=== PATIENT | male | born 1965 ===

== ENCOUNTER 2017-12-08 18:08 | Inpatient (IN) | payer BC, SELFPAY ==
[2017-12-08] MEDS ORDERED: Calcium Carbonate 500 MG ChewTAB PO PRN (19:46)
[2017-12-08] MEDS ORDERED: Milk Of Magnesia 30 ML UDCUP PO PRN (19:46)
[2017-12-08] MEDS ORDERED: Senokot 8.6 MG TAB PO PRN (19:46)
[2017-12-08] MEDS ORDERED: Mag-Al 1200 mg/1200 mg/30 ML UDCUP PO PRN (19:46)
[2017-12-08] MEDS ORDERED: Acetaminophen 325 MG TAB PO PRN (19:46)
[2017-12-08] MEDS ORDERED: Fleet Enema 133 ML BOT PR PRN (19:46)
[2017-12-08] MEDS ORDERED: Ondansetron HCl/PF 4 MG/2 ML Vial IVP PRN (19:46)
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
[2017-12-08] MEDS: Docusate 100 MG CAP PO SCH (23:23)
[2017-12-08] MEDS: HYDROcodone/Acetaminophen 5/325 mg Tablet PO PRN (23:23)
[2017-12-08] MEDS: Sodium Chloride 0.9% 1,000 ML IV SCH (23:25)
[2017-12-09] MEDS: HYDROcodone/Acetaminophen 5/325 mg Tablet PO PRN ×4 (03:48→18:37)
[2017-12-09 05:10] VITALS: BMI 29.4
[2017-12-09 06:08] LABS: #Eosinphils 0.1 thou/uL (0.0-0.7); #Lymphocytes 1.2 thou/uL (1.20-3.40); #Monocytes 1.4 thou/uL (0.11-0.59); #Neutrophils 7.9 thou/uL (1.40-6.50); %Basophils 0.1 % (0.0-1.0); %Eosinophils 0.8 % (0.0-10.0); %Monocytes 13.1 % (0.0-10.0); Hemoglobin 13.7 g/dL (14.0-18.0); Mean Corpuscular HGB CONC 33.3 g/dL (32.0-36.0); Mean Corpuscular Hemoglobin 31.3 pg (27.0-31.0); Mean Corpuscular Volume 94.1 fL (78.0-98.0); Mean Platelet Volume 7.4 fL (7.4-10.4); Platelet Count 167 thou/uL (130-400); RBC Distribution Width 11.4 % (11.5-14.5); Red Blood Cell (RBC) Count 4.37 mill/uL (4.70-6.10); White Blood Cell (WBC) Count 10.5 thou/uL (4.8-10.8)
[2017-12-09 06:29] LABS: Anion Gap 11 mmol/L (10-20); BUN (Urea Nitrogen) 11 mg/dL (8.4-25.7); Calc. Creatinine Clearance 116 mL/min (70-130); Calcium 9.1 mg/dL (7.8-10.44); Carbon Dioxide 27 mmol/L (22-29); Chloride 101 mmol/L (98-107); Estimated GFR-MDRD 80; Glucose 105 mg/dL (70-105); Potassium 4.1 mmol/L (3.5-5.1); Sodium 135 mmol/L (136-145)
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
[2017-12-09] MEDS: tiZANidine HCl 4 MG TAB PO SCH ×3 (08:30→21:47)
[2017-12-09] MEDS: Docusate 100 MG CAP PO SCH ×2 (08:33→21:48)
[2017-12-09] MEDS: Sodium Chloride 0.9% 1,000 ML IV SCH (08:35)
[2017-12-10] MEDS: Sodium Chloride 0.9% 1,000 ML IV SCH ×2 (02:20→13:06)
[2017-12-10] MEDS: HYDROcodone/Acetaminophen 5/325 mg Tablet PO PRN ×3 (03:10→14:51)
[2017-12-10] MEDS: Docusate 100 MG CAP PO SCH (09:26)
[2017-12-10] MEDS: tiZANidine HCl 4 MG TAB PO SCH ×2 (09:26→14:48)
[2017-12-10 16:24] VITALS: BP 120/77; TEMP 98.4
== END 2017-12-10 18:00 | disposition home or self-care (01) | DRG 561 ==
LOC: SURG B 18:08 → UNDOADMIN 18:08 → SURG B 18:46
PROVIDERS: ADMIT Surgery; ATTEND Surgery
DX: S22.060D Wedge compression fracture of T7-T8 vertebra, subsequent encounter for fracture with routine healing (principal); S22.070D Wedge compression fracture of T9-T10 vertebra, subsequent encounter for fracture with routine healing; V44.5XXD Car driver injured in collision with heavy transport vehicle or bus in traffic accident, subsequent encounter; G40.909 Epilepsy, unspecified, not intractable, without status epilepticus; Q76.49 Other congenital malformations of spine, not associated with scoliosis; R40.2413 Glasgow coma scale score 13-15, at hospital admission
CPT/HCPCS: 36415; 70450; 80048; 85025; L0639